=== PATIENT | male | born 1980 | race Caucasian/White ===

== ENCOUNTER 2024-07-24 21:27 | Emergency (ER) | payer BC ==
[2024-07-24 21:41] VITALS: BP 130/77; PULSE 80; RESP 17; TEMP 97.9; BMI 39.1
[2024-07-24] MEDS ORDERED: IBUPROFEN 600 MG TABLET (FP) PO ONE (22:10)
[2024-07-24] MEDS ORDERED: SULFAMETHOXAZOLE/TRIMETHOPRIM 800MG/160MG D.S. TABLET ONE (22:11)
[2024-07-24] MEDS: IBUPROFEN 600 MG TABLET (FP) PO ONE (22:12)
[2024-07-24] MEDS: SULFAMETHOXAZOLE/TRIMETHOPRIM 800MG/160MG D.S. TABLET PO ONE (22:12)
== END 2024-07-24 22:15 | disposition home or self-care (01) ==
LOC: JER 21:27
DX: L73.9 Follicular disorder, unspecified (principal)
CPT/HCPCS: 99283-25